=== PATIENT | male | born 1985 | race Caucasian/White ===

== ENCOUNTER 2017-11-21 09:18 | Emergency (ER) | payer OTHER ==
[~2017-11-21] VITALS: Ht 185.4 cm; Wt 97.5 kg
[~2017-11-21 09:18] MED LIST: CYCLOBENZAPRINE10 MG; GABAPENTIN300 M3; NORCO1 TA1; SOMA350 MG; VOLTAREN-XR100 MG
[2017-11-21 09:20] VITALS: BP 141/71; Ht 185.4 cm; Wt 97.5 kg
== END 2017-11-21 10:36 | disposition home or self-care (01) ==
LOC: ED 09:18
DX: M54.5 Low back pain (principal)
CPT/HCPCS: J1885

== ENCOUNTER 2018-08-06 09:34 | Emergency (ER) | payer OTHER ==
[~2018-08-06] VITALS: Ht 185.4 cm; Wt 103.9 kg
[2018-08-06 09:57] VITALS: Ht 185.4 cm; Wt 103.9 kg
[2018-08-06 11:35] VITALS: BP 165/89
== END 2018-08-06 12:38 | disposition home or self-care (01) ==
LOC: ED 09:34
DX: M54.5 Low back pain (principal); G89.29 Other chronic pain
CPT/HCPCS: J1100; J1885

== ENCOUNTER 2020-05-30 06:19 | Emergency (ER) | payer OTHER, SELFPAY ==
[~2020-05-30] VITALS: Ht 185.4 cm; Wt 102.1 kg
[2020-05-30 06:21] VITALS: Ht 185.4 cm; Wt 102.1 kg
[2020-05-30 07:21] VITALS: BP 133/85
== END 2020-05-30 07:21 | disposition home or self-care (01) ==
LOC: ED 06:19
DX: U07.1 COVID-19 (principal)
CPT/HCPCS: U0003